=== PATIENT | male | born 1965 | race Caucasian/White ===

== ENCOUNTER 2016-07-16 19:11 | Inpatient (IN) | payer MEDICAID ==
[~2016-07-16] VITALS: Ht 157.5 cm; Wt 63.5 kg
[2016-07-16 20:05] VITALS: BP 141/80
[2016-07-16] MEDS ORDERED: PIPERACILLIN/TAZOBACTAM 3.375 GM in DEXTROSE 5% 50 ML IV ONE (20:20)
[2016-07-16] MEDS ORDERED: VANCOMYCIN 1,000 MG in DEXTROSE 5% 250 ML IV ONE (20:20)
[2016-07-16] MEDS ORDERED: NACL 0.9% 1,000 ML IV ONE ×3 (20:20→23:25)
--- NOTE | 2016-07-16 20:22 | NUR ---
TO ER OF1
--- NOTE | 2016-07-16 20:23 | NUR ---
Patient being evaluated by physician.
--- NOTE | 2016-07-16 20:51 | NUR ---
MOVED TO ER BED 4 VIA WHEELCHAIR
--- NOTE | 2016-07-16 21:06 | NUR ---
PATIENT PRESENTS TO ED WITH RT. FOOT PAIN . 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 FOOT HAS SINCE BECOME SWOLLEN WITH ABCESS AND PAIN. PT REPORTS LAST TDAP WAS 10 YEARS AGO . DENIES N/V/D; SKIN IS PINK/WARM/DRY; AAOX4 WITH EVEN AND STEADY GAIT; LUNGS CLEAR BL; HR EVEN AND REGULAR; PT DENIES ANY FEVER, CP, SOB, OR COUGH AT THIS TIME; PATIENT STATES PAIN OF 10/10 AT THIS TIME; VSS; PATIENT POSITIONED FOR COMFORT; HOB ELEVATED; BEDRAILS UP X2; BED DOWN. ER MD MADE AWARE OF PT STATUS.
[2016-07-16] MEDS ORDERED: VANCOMYCIN 1,000 MG VIAL ONE (21:17)
[2016-07-16] MEDS ORDERED: PIPERACILLIN/TAZOBACTAM 3.375 GM VIAL IV ONE (21:17)
[2016-07-16] MEDS ORDERED: INSULIN HUMAN REGULAR 100 UNITS/ML 10 ML VIAL IVP ONE ×2 (21:35→23:25)
--- NOTE | 2016-07-16 22:55 | NUR ---
Patient appears to be resting comfortably in bed. Vital Signs within normal limits. Respirations even and unlabored. DAUGHTER AT BEDSIDE
--- NOTE | 2016-07-17 00:10 | NUR ---
Patient will be admitted to care of DR. PINK. Admited to Med/Surg. Will go to room 112B. Belongings list completed. Report to SAMREEN WALL.
[2016-07-17 00:40] VITALS: BP 133/69
[2016-07-17] MEDS ORDERED: ACETAMINOPHEN 325 MG TAB PO PRN (00:40)
[2016-07-17] MEDS ORDERED: DEXTROSE 50% 50 ML SYR IVP PRN (00:40)
[2016-07-17] MEDS ORDERED: HYDROcodone/APAP 5/325 MG 1 TAB TAB PO PRN (00:40)
--- NOTE | 2016-07-17 00:40 | NUR ---
[facility] of RIGHT FOOT PAIN & SWELLING. A 50 y/o. Male, Appropriate. ALERT AWAKE ORIENTED X4. INITIAL ASSESSMENT DONE. NO S/S OF RESPIRATORY DISTRESS OR SOB NOTED. PT HAS A CELLULITIS ON THE RIGHT FOOT. NO C/O PAIN ASSOCIATED WITH THE CELLULITIS AT THIS TIME. PLAN OF CARE REVIEWED TO PT AND FAMILY AT BEDSIDE AND VERBALIZED UNDERSTANDING. oriented to call light, bed, phone,television, bathroom, smoking policy, visiting hours, procedures, ID bracelet on. Belongings list checked. CALL LIGHT WITHIN REACH. WILL CONTINUE TO MONITOR.
[2016-07-17] MEDS: NACL 0.9% 1,000 ML IV SCH ×2 (01:18→10:40)
[2016-07-17] MEDS ORDERED: MILD SOAP AND WATER TP PRN (02:10)
--- NOTE | 2016-07-17 03:35 | NUR ---
VENOUS ULTRASOUND ON BILATERAL LOWER EXTREMITIES DONE AT BEDSIDE AND PT TOLERATED WELL. WILL CONTINUE TO MONITOR.
[2016-07-17] MEDS ORDERED: PIPERACILLIN/TAZOBACTAM 3.375 GM VIAL IV ONE (05:01)
[2016-07-17] MEDS: PIPER/TAZO 3.375GM/D5W PREMIX 50 ML IV SCH ×3 (05:12→18:03)
--- NOTE | 2016-07-17 05:30 | NUR ---
AM CARE RENDERED. BED LINEN CHANGED. INSTRUCTED PATIENT TO REPOSITION. KEPT CLEAN AND DRY. CALL LIGHT WITHIN REACH. WILL CONTINUE TO MONITOR.
[2016-07-17] MEDS: BLOOD GLUCOSE MONITORING 1 DEV DEV FS SCH ×4 (06:39→21:19)
[2016-07-17] MEDS: INSULIN ASPART SLIDING SCALE 100 UNITS/ML VIAL SUBQ PRN ×3 (06:39→21:24)
--- NOTE | 2016-07-17 07:21 | NUR ---
PT HAS NO S/S OF ANY DISCOMFORT. GIVE REPORT TO SHIRLEY JOLLEY RN AT BEDSIDE FOR CONTINUITY OF CARE.
[2016-07-17 08:00] VITALS: BP 138/77
[2016-07-17] MEDS: MORPHINE SULFATE 2 MG/ML SYR IVP PRN ×2 (08:15→21:12)
--- NOTE | 2016-07-17 09:15 | NUR ---
RECEIVED REPORT FROM IN CLASS SPECIAL EDUCATION TEACHER RN. PT IS A/O X 4, AMBULATORY WITH ASSIST X 1. RAC 20G IV INTACT AND PATENT. NO S/S OF ACUTE CARDIAC/RESPIRATORY DISTRESS/DISCOMFORT. SAFETY MEASURES IN PLACE, CALL LIGHT WITHIN REACH. WILL CONTINUE PLAN OF CARE, WILL CONTINUE TO MONITOR.
--- NOTE | 2016-07-17 09:19 | NUR ---
PATIENT HAS BEEN SCREENED AND CATEGORIZED HIGH NUTRITION RISK. PATIENT WILL BE SEEN WITHIN 1-2 DAYS OF ADMISSION. 07/17/16-07/18/[address]
--- NOTE | 2016-07-17 10:30 | NUR ---
MD SPOKE WITH PT AND DAUGHTER ABOUT SURGICAL PROCEDURE. PT AND DAUGHTER UNDERSTANDS, PT SIGNED CONSENT.
[2016-07-17] MEDS ORDERED: fentaNYL 0.05 MG/ML VIAL ONE (10:50)
--- NOTE | 2016-07-17 11:00 | NUR ---
PT LEFT THE UNIT WITH PREOP RN FOR SURGICAL PROCEDURE IN STABLE CONDITION.
[2016-07-17] MEDS: HYDROcodone/APAP 10/325 MG 1 TAB TAB PO SCH ×2 (11:20→18:02)
[2016-07-17] MEDS ORDERED: HYDROmorphone PFS 2 MG/ML SYR ONE (11:49)
[2016-07-17] MEDS ORDERED: HYDROmorphone 1 MG/ML AMP IVP PRN (11:50)
[2016-07-17] MEDS ORDERED: BLOOD GLUCOSE MONITORING 1 DEV DEV FS SCH (11:50)
--- NOTE | 2016-07-17 12:29 | NUR ---
07/17/16 RD INITIAL ASSESSMENT COMPLETED PLEASE REFER TO NUTRITION ASSESSMENT UNDER CARE ACTIVITY FOR ESTIMATED NUTRITIONAL NEEDS. RD RECOMMENDATIONS: 1. CONTINUE NPO DIET MEDICALLY APPROPRIATE 2. WHEN APPROPRIATE CONSIDER ADVANCING DIET TOLERATED TO [address] WILL FOLLOW UP WITH DIET EDUCATION NEXT VISIT 4. RD WILL F/U 2-3 DAYS; HIGH RISK. MARY BOSS RD
[2016-07-17] MEDS: DRY DRESSING TP SCH (12:36)
[2016-07-17 13:40] VITALS: BP 133/74
--- NOTE | 2016-07-17 13:40 | NUR ---
PT RETURNED TO UNIT FROM PACU. VS STABLE. NO S/S OF ACUTE DISTRESS/DISCOMFORT. R FOOT DEBRIDEMENT, R GREAT TOE REMOVED. CALL LIGHT WITHIN REACH. FAMILY AT BEDSIDE. WILL CONTINUE TO MONITOR.
--- NOTE | 2016-07-17 17:31 | NUR ---
PT AWAKE, DAUGHTER AT BEDSIDE. NO S/S OF ACUTE DISTRESS/DISCOMFORT. CALL LIGHT WITHIN REACH. WILL CONTINUE TO MONITOR.
--- NOTE | 2016-07-17 19:27 | NUR ---
ENDORSED REPORT TO CO FOUNDER AND CEO SAMREEN DELEON. NO S/S OF ACUTE DISTRESS OR DISCOMFORT. PT IN STABLE CONDITION.
[2016-07-17 20:00] VITALS: BP 128/71
--- NOTE | 2016-07-17 20:00 | NUR ---
RECEIVED ALERT,ORIENTED. AFEBRILE, NOT IN ACUTE DISTRESS. DENIES ANY PAIN OR DISCOMFORT AT THIS TIME. WITH IV FLUID NS INFUSING AT 40 ML/HR VIA RIGHT AC # 20 IV LINE. RIGHT FOOT ELEVATED ON A PILLOW, DRESSING CLEAN,DRY AND INTACT. SAO2=97% ON ROOM AIR. FAMILY MEMBERS AT BEDSIDE. VS STABLE, WILL CONTINUE TO MONITOR. NEEDS ATTENDED.
--- NOTE | 2016-07-17 21:12 | NUR ---
COMPLAINED OF RIGHT FOOT PAIN (12/28). MORPHINE 2 MG IVP AND DUE MEDICATION GIVEN SCHEDULED.
--- NOTE | 2016-07-17 21:24 | NUR ---
DNWONBISV=527. 6 UNITS OF NOVOLG SQ GIVEN PER SLIDING SCALE. HS SNACK GIVEN AFTER.
--- NOTE | 2016-07-18 | NUR ---
ASLEEP IN BED, NOT IN ANY KIND OF DISTRESS. NO PAIN OR DISCOMFORT NOTED AT THIS TIME. DUE IV ANTIBIOTIC GIVEN. WILL HOLD NORCO DUE TO PT.SLEEPING. SIDE RAILS UP, CALL LIGHT WITHIN REACH. KEPT WARM AND COMFORTABLE.
[2016-07-18] MEDS: PIPER/TAZO 3.375GM/D5W PREMIX 50 ML IV SCH ×5 (00:11→23:55)
[2016-07-18] MEDS: HYDROcodone/APAP 10/325 MG 1 TAB TAB PO SCH ×6 (00:31→23:55)
--- NOTE | 2016-07-18 00:31 | NUR ---
COMPLAINED OF PAIN. NORCO 10/325 MG PO GIVEN.
[2016-07-18] MEDS: MORPHINE SULFATE 2 MG/ML SYR IVP PRN ×3 (01:46→14:31)
--- NOTE | 2016-07-18 01:46 | NUR ---
COMPLAINED OF NON-RELIEF POF PAIN. MORPHINE 2 MG IVP GIVEN ORDERED.
[2016-07-18 04:00] VITALS: BP 119/70
--- NOTE | 2016-07-18 04:00 | NUR ---
ASLEEP, NO PAIN OR DISCOMFORT NOTED AT THIS TIME. NO SIGNIFICANT CHANGE IN CONDITION. VS REMAIN STABLE. WILL CONTINUE TO MONITOR.
[2016-07-18] MEDS: NACL 0.9% 1,000 ML IV SCH (05:23)
[2016-07-18] MEDS: BLOOD GLUCOSE MONITORING 1 DEV DEV FS SCH ×4 (05:51→20:51)
[2016-07-18] MEDS: INSULIN ASPART SLIDING SCALE 100 UNITS/ML VIAL SUBQ PRN ×4 (06:15→20:47)
--- NOTE | 2016-07-18 06:15 | NUR ---
ACCUCHECK =285. 6 UNITS OF NOVOLOG GIVEN SQ PER SLIDING SCALE.
--- NOTE | 2016-07-18 07:15 | NUR ---
ENDORSED CARE TO WANDA JOLLEY.
--- NOTE | 2016-07-18 07:30 | NUR ---
RECEIVED ON BED AAOX4. NO SOB NOTED. NO C/O PAIN AT THIS TIME. IV TO RT AC PATENT AND INTACT. CHEST, DIMINISHED AIR ENTRY TO THE BASES. ABDOMEN SOFT, BOWEL SOUNDS PRESENT. RT FOOT DRESSING DRY AND INTACT, AFFECTED EXTREMITY ELEVATED WITH PILLOW. INSTRUCTED PT TO CALL FOR ASSISTANCE, CALL LIGHT WITHIN REACH, PT VERBALIZED UNDERSTANDING.
[2016-07-18 08:00] VITALS: BP 145/83
--- NOTE | 2016-07-18 10:26 | NUR ---
WOUND CARE NOTES: UNABLE TO ASSESS AT THIS TIME, PODIATRY WITH ORDER FOR THEM TO DO FIRST DRESSING CHANGE. WITH DRESSING AND VIOLETA BANDAGE WRAP TO RIGHT FOOT, DRY AND INTACT. PATIENT COMPLAINED OF 6/10 PAIN AT THIS TIME, PRIMARY RN MADE AWARE.
[2016-07-18] MEDS: DRY DRESSING TP SCH (13:00)
--- NOTE | 2016-07-18 13:00 | NUR ---
FIRST DRESSING NOT DONE UNTIL SEEN BY DR. LUDWIG. RT FOOT DRESSING DRY AND INTACT, RT FOOT ELEVATED WITH PILLOWS.
[2016-07-18] MEDS ORDERED: HYDROCOLLOID DRESSING TP SCH (14:20)
--- NOTE | 2016-07-18 14:20 | NUR ---
FIRST POST OP DAY DRESSING CHANGED BY DR. MYERS. WOUND PHOTOS TAKEN AND DOCUMENTED.
[2016-07-18] MEDS: SKINTEGRITY HYDROGEL TP SCH (14:39)
--- NOTE | 2016-07-18 15:30 | NUR ---
PHYSICAL THERAPY ON GOING AT THE BEDSIDE.
[2016-07-18 16:00] VITALS: BP 144/73
[2016-07-18] MEDS ORDERED: metFORMIN 500 MG TAB PO SCH (17:00)
--- NOTE | 2016-07-18 17:55 | NUR ---
PT WAKE, TALKING TO DAUGHTER AT THE BEDSIDE. NO COMPLAINTS MADE. Addendum: 07/18/16 at 1937 by Casandra Calles RN *AWAKE*
--- NOTE | 2016-07-18 19:30 | NUR ---
PT AWAKE. NO SOB NOTED. NO COMPLAINTS MADE. ENDORSED TO NEXT SHIFT NURSE FOR CONTINUITY OF CARE.
--- NOTE | 2016-07-18 19:30 | NUR ---
RECEIVED FROM AM RN IN BED AWAKE AND ALERT. VERBALIZING WELL. DRESSING TO RIGHT FOOT INTACT AND NO BLEEDING. CALL LIGHT WITH IN REACH. AFEBRILE. CARE PLANS FOR THE NIGHT DISCUSSED WITH PT. ORIENTED X 4.
--- NOTE | 2016-07-18 22:30 | NUR ---
PT. STILL AWAKE AT THIS TIME WATCHING TV WITH SON AT BEDSIDE. NO COMPLAINTS DONE. ABLE TO USE CALL LIGHT FOR HELP. ALERT AND ORIENTED X 4. DRESSING TO RIGHT FOOT IN PLACE AND NO BLEEDING. ENCOURAGED TO CALL FOR ANY HELP HE MAY NEED. IVF SITE INTACT AND NO INFILTRATION.
[2016-07-18 23:45] VITALS: BP 133/72
--- NOTE | 2016-07-18 23:56 | NUR ---
SLEEPING WITH SON AT BEDSIDE. NO COMPLAINTS DONE. USES CALL LIGHT FOR HELP. DRESSING TO RIGHT FOOT NO BLEEDING.
--- NOTE | 2016-07-19 02:30 | NUR ---
SLEEPING. NO RESTLESSNESS. CALL LIGHT WITH IN REACH. SON AT BEDSIDE.
[2016-07-19] MEDS: NACL 0.9% 1,000 ML IV SCH (04:34)
--- NOTE | 2016-07-19 05:00 | NUR ---
AWAKE AT THIS TIME . SWINGING CUT OFF SAW OPERATOR IN FOR BLOOD WORKS. NO COMPLAINTS DONE AT THIS TIME. SLEPT WELL THIS SHIFT. SON AT BEDSIDE. NO BLEEDING TO DRESSING ON RIGHT FOOT.
[2016-07-19] MEDS: BLOOD GLUCOSE MONITORING 1 DEV DEV FS SCH ×4 (05:55→21:12)
[2016-07-19] MEDS: PIPER/TAZO 3.375GM/D5W PREMIX 50 ML IV SCH ×3 (05:56→17:25)
[2016-07-19] MEDS: HYDROcodone/APAP 10/325 MG 1 TAB TAB PO SCH ×3 (05:57→17:25)
--- NOTE | 2016-07-19 07:32 | NUR ---
ENDORSED TO THE NEXT RN FOR CONTINUITY OF CARE AWAKE AND ALERT. NO COMPLAINTS DONE.
--- NOTE | 2016-07-19 07:33 | NUR ---
RECEIVED REPORT FROM SAMREEN CHAMBERLAIN. PT IS AAOX4. PT ON ROOM AIR WITH NO S/S OF DISTRESS NOTED. IV TO RIGHT AC #20, PATENT AND INTACT. NO N/V OR PAIN INDICATED. WOUND TO RIGHT FOOT NOTED. ALL SAFETY PRECAUTIONS IN PLACE, SIDE RAILSX2, BED IN LOW POSITION, AND CALL LIGHT WITHIN REACH. WILL CONTINUE TO MONITOR.
[2016-07-19 08:00] VITALS: BP 158/94
[2016-07-19] MEDS: ONDANSETRON 4 MG/2 ML VIAL IVP PRN (08:47)
[2016-07-19] MEDS: ATORVASTATIN 20 MG TAB PO SCH (08:51)
[2016-07-19] MEDS: metFORMIN 850 MG TAB PO SCH ×2 (08:51→17:25)
--- NOTE | 2016-07-19 08:58 | NUR ---
PT C/O NAUSEA AND VOMITING. ADMINISTERED ZOFRAN ORDERED. PT TOLERATED MEDS WELL. WILL CONTINUE TO MONITOR.
[2016-07-19] MEDS ORDERED: SKINTEGRITY HYDROGEL TP SCH (09:00)
[2016-07-19] MEDS ORDERED: METOCLOPRAMIDE 10 MG/2 ML INJ VIAL IVP PRN (09:25)
--- NOTE | 2016-07-19 11:36 | NUR ---
TALKED TO DR DONAHUE, DRESSING CHANGE TO BE PERFORMED BY ACADEMIC REGISTRAR OR RESIDENTS. RESIDENTS TO FOLLOW UP.
[2016-07-19] MEDS: SKINTEGRITY HYDROGEL TP SCH (11:37)
[2016-07-19] MEDS: DRY DRESSING TP SCH (11:37)
[2016-07-19] MEDS: INSULIN ASPART SLIDING SCALE 100 UNITS/ML VIAL SUBQ PRN ×3 (12:07→21:17)
--- NOTE | 2016-07-19 12:08 | NUR ---
PT TOLERATED MEDS WELL. BLOOD GLUCOSE 190, ADMINISTERED 2 UNITS OF INSULIN ORDERED.
--- NOTE | 2016-07-19 12:14 | NUR ---
PT TOLERATED MEDS WELL. WILL CONTINUE TO MONITOR.
--- NOTE | 2016-07-19 14:00 | NUR ---
PT RESTING WITH NO DISTRESS NOTED.
[2016-07-19 16:00] VITALS: BP 145/73
--- NOTE | 2016-07-19 17:27 | NUR ---
PT TOLERATED MEDS WELL. VSS. BLOOD GLUCOSE 214, WILL ADMINISTER INSULIN ORDERED.
--- NOTE | 2016-07-19 17:34 | NUR ---
BLOOD GLUCOSE 214, ADMINISTERED 4 UNITS OF INSULIN ORDERED. PROVIDED PT WITH SNACK.
--- NOTE | 2016-07-19 19:22 | NUR ---
ENDORSED CARE TO SAMREEN CHAMBERLAIN. PT IN STABLE CONDITION.
--- NOTE | 2016-07-19 19:25 | NUR ---
RECEIVED FROM AM RN IN BED AWAKE AND ALERT. DRESSING TO RIGHT FOOT INTACT AND NO BLEEDING NOTED. PT. IS ABLE TO VERBALIZE NEEDS WELL. ABLE TO USE CALL LIGHT FOR HELP. CARE PLANS FOR THE NIGHT DISCUSSED WITH HIM. PT. WITH VISITORS AT THIS TIME. NO COMPLAINTS DONE.
--- NOTE | 2016-07-19 21:00 | NUR ---
NEW IVF LINE INSERTED TO LEFT FOREARM#22 RT OLD IVF SITE TO LEFT AC INFILTRATED. TOLERATED WELL. DISCONTINUED IVF LINE WITH TIP INTACT. COVERED WITH BAND AID.
--- NOTE | 2016-07-19 23:40 | NUR ---
SLEEPING AT THIS TIME.
[2016-07-20] VITALS: BP 132/80
[2016-07-20] MEDS: ONDANSETRON 4 MG/2 ML VIAL IVP PRN ×3 (00:06→12:31)
[2016-07-20] MEDS: HYDROcodone/APAP 10/325 MG 1 TAB TAB PO SCH ×2 (00:07→05:41)
[2016-07-20] MEDS: PIPER/TAZO 3.375GM/D5W PREMIX 50 ML IV SCH ×4 (00:07→17:07)
--- NOTE | 2016-07-20 02:41 | NUR ---
SLEEPING. NO RESTLESSNESS. DAUGHTER AT BEDSIDE WATCHING OVER PT. CALL LIGHT WITH IN REACH.
[2016-07-20] MEDS: NACL 0.9% 1,000 ML IV SCH ×2 (04:34→17:07)
[2016-07-20] MEDS: BLOOD GLUCOSE MONITORING 1 DEV DEV FS SCH ×4 (05:41→20:54)
[2016-07-20] MEDS: INSULIN ASPART SLIDING SCALE 100 UNITS/ML VIAL SUBQ PRN ×3 (05:45→20:58)
[2016-07-20] MEDS: MORPHINE SULFATE 2 MG/ML SYR IVP PRN (05:49)
--- NOTE | 2016-07-20 05:49 | NUR ---
PT. VOMITED AT THIS TIME. REFUSED NORCO TABLET. REQUESTED FOR A DIFFERENT PAIN RELIEVER IVP. WILL MEDICATE WITH MORPHINE INSTEAD REQUESTED. DAUGHTER AT BEDSIDE.
--- NOTE | 2016-07-20 07:39 | NUR ---
ENDORSED TO THE NEXT RN FOR CONTINUITY OF CARE. DAUGHTER AT BEDSIDE. NO COMPLAINTS DONE.
--- NOTE | 2016-07-20 07:40 | NUR ---
RECEIVED REPORT FROM SAMREEN CHAMBERLAIN. PT IS AAOX4. PT ON ROOM AIR WITH NO S/S OF DISTRESS NOTED. IV TO LEFT WRIST #22, PATENT AND INTACT. DRESSING NOTED TO RIGHT FOOT. NO N/V NOTED AT THIS TIME, NO PAIN INDICATED. ALL SAFETY PRECAUTIONS IN PLACE, SIDE RAILSX2, AND BED IN LOW POSITION. WILL CONTINUE TO MONITOR.
[2016-07-20 08:00] VITALS: BP 144/74
[2016-07-20] MEDS: ATORVASTATIN 20 MG TAB PO SCH (09:39)
--- NOTE | 2016-07-20 09:51 | NUR ---
PT TOLERATED MEDS WELL. WILL CONTINUE TO MONITOR.
--- NOTE | 2016-07-20 10:00 | NUR ---
PHYSICAL THERAPY IN TO SEE PT. PT TOLERATED GOING TO THE STAIRS. PHYSICAL THERAPY SUGGESTED CRUTCHES FOR PT.
--- NOTE | 2016-07-20 11:32 | NUR ---
BLOOD GLUCOSE 135, NO COVERAGE INDICATED. PT TOLERATED MEDS WELL. WILL CONTINUE TO MONITOR.
[2016-07-20] MEDS: DRY DRESSING TP SCH (12:09)
[2016-07-20] MEDS: SKINTEGRITY HYDROGEL TP SCH (12:09)
--- NOTE | 2016-07-20 12:09 | NUR ---
DR MYERS IN TO SEE PT. DRESSING BEING CHANGED, AND WOUND CLEANED BY DR MYERS. WILL FOLLOW UP.
--- NOTE | 2016-07-20 12:34 | NUR ---
PT C/O NAUSEA, ADMINISTERED ZOFRAN ORDERED. FAMILY PRESENT AT BEDSIDE.
--- NOTE | 2016-07-20 14:00 | NUR ---
PT RESTING NO DISTRESS NOTED AT THIS TIME.
--- NOTE | 2016-07-20 15:52 | NUR ---
07/20/16 RD PROGRESS NOTE COMPLETED PLEASE REFER TO NUTRITION PROGRESS NOTE UNDER CARE ACTIVITY FOR ESTIMATED NUTRITIONAL NEEDS. RD RECOMMENDATIONS: 1. CONTINUE CCHO [address] PROVIDED DM DIET EDUCATION 3. RD WILL F/U 3-5 DAYS; MODERATE RISK.MARY BOSS RD
[2016-07-20 16:00] VITALS: BP 146/85
--- NOTE | 2016-07-20 17:20 | NUR ---
BLOOD GLUCOSE 229, ADMINISTERED 4 UNITS OF INSULIN ORDERED. PT TOLERATED MEDS WELL. WILL CONTINUE TO MONITOR.
--- NOTE | 2016-07-20 19:03 | NUR ---
DR LUDWIG PERFORMING WOUND CARE AND EDUCATING THE FAMILY. HYDROGEL PROVIDED. WILL FOLLOW UP ON ORDERS.
--- NOTE | 2016-07-20 19:34 | NUR ---
ENDORSED CARE TO SAMREEN SKELTON. PT IN STABLE CONDITION.
--- NOTE | 2016-07-20 19:37 | NUR ---
REPORT RECEIVED FROM DAY NURSEWANDA. PATIENT RESTING IN BED, WATCHING TELEVISION. FAMILY AT BEDSIDE. NO RESPIRATORY DISTRESS, SOB, OR DISCOMFORT. INITIAL ASSESSMENT AND BODY CHECK DONE. PATIENT IS AOX4, IV ACCESS TO LEFT WRIST 22G, PATENT. RIGHT GREATER TOE AMPUTATION NOTED, RIGHT FOOT COVERED WITH DRESSING, S/P DEBRIDEMENT. PATIENT DENIES ANY PAIN AT THIS TIME. DISCUSSED PLAN OF CARE, MEDICATION REGIMENT, AND PAIN MANAGEMENT WITH PATIENT. PATIENT VERBALIZED UNDERSTANDING. PLACED PATIENT ON SAFETY/FALL PRECAUTIONS. CALL LIGHT LEFT WITHIN REACH, WILL CONTINUE TO MONITOR.
[2016-07-20] MEDS: SACCHAROMYCES 250 MG CAP PO SCH (20:54)
--- NOTE | 2016-07-20 22:15 | NUR ---
PATIENT IN BED, SLEEPING. NO RESPIRATORY DISTRESS, SOB, OR DISCOMFORT. CALL LIGHT LEFT WITHIN REACH, WILL CONTINUE TO MONITOR.
[2016-07-21] VITALS: BP 144/74
[2016-07-21] MEDS: PIPER/TAZO 3.375GM/D5W PREMIX 50 ML IV SCH ×3 (00:29→11:42)
--- NOTE | 2016-07-21 00:48 | NUR ---
PATIENT ASLEEP. NO RESPIRATORY DISTRESS, SOB, OR DISCOMFORT. CALL LIGHT LEFT WITHIN REACH, WILL CONTINUE TO MONITOR.
--- NOTE | 2016-07-21 03:01 | NUR ---
PATIENT SLEEPING. NO RESPIRATORY DISTRESS, SOB, OR DISCOMFORT. CALL LIGHT LEFT WITHIN REACH, WILL CONTINUE TO MONITOR.
[2016-07-21] MEDS ORDERED: HYDROcodone/APAP 10/325 MG 1 TAB TAB PO PRN (06:00)
--- NOTE | 2016-07-21 06:10 | NUR ---
PATIENT IN BED, ASLEEP. NO RESPIRATORY DISTRESS, SOB, OR DISCOMFORT. CALL LIGHT LEFT WITHIN REACH, WILL CONTINUE TO MONITOR.
[2016-07-21] MEDS: BLOOD GLUCOSE MONITORING 1 DEV DEV FS SCH ×2 (06:32→11:41)
--- NOTE | 2016-07-21 07:20 | NUR ---
REPORT GIVEN TO DAY NURSENUBIA. PATIENT RESTING IN BED, STABLE. NO RESPIRATORY DISTRESS, SOB, OR DISCOMFORT. ALL NEEDS ATTENDED TO DURING SHIFT, CALL LIGHT LEFT WITHIN REACH.
--- NOTE | 2016-07-21 07:21 | NUR ---
REPORT RECEIVED FROM NIGHT NURSE CARMINA JOLLEY. PATIENT APPEARED TO BE CALM AWAKE AND RESTING WELL IN BED. AAOX4 NO SIGN OF SOB OR RESPIRATORY DISTRESS NOTED. INITIAL ASSESSMENT DONE. PATIENT HAS DRESSING TO RIGHT FOOT DRY AND INTACT WITH R BIG TOE AMPUTATED NOTED S/P DEBRIDEMENT. FAMILY AT BEDSIDE. PATIENT HAS IV ACCESS TO LEFT WRIST 22G, PATENT DENIES ANY PAIN AT THIS TIME. DISCUSSED PLAN OF CARE, MEDICATION REGIMENT, AND PAIN MANAGEMENT WITH PATIENT. PATIENT VERBALIZED UNDERSTANDING. PLACED PATIENT ON SAFETY/FALL PRECAUTIONS. CALL LIGHT LEFT WITHIN REACH, WILL CONTINUE TO MONITOR.
[2016-07-21] MEDS ORDERED: ACETAMINOPHEN &1 TA1 PO (07:55)
[2016-07-21] MEDS ORDERED: LEVAQUIN750 MG PO (07:55)
[2016-07-21] MEDS ORDERED: GLUCOTROL5 MG PO (07:56)
[2016-07-21 08:00] VITALS: BP 166/84
[2016-07-21] MEDS: ATORVASTATIN 20 MG TAB PO SCH (09:03)
[2016-07-21] MEDS: SACCHAROMYCES 250 MG CAP PO SCH (09:03)
--- NOTE | 2016-07-21 09:08 | NUR ---
MORNING DUE MEDICATIONS GIVEN WITH TEACHING. PATIENT TOLERATED WELL AND VERBALIZED UNDERSTANDING. ALL SIGN OF DISTRESS NOTED. NO C/O PAIN OR DISCOMFORT. FAMILY MEMBER AT BEDSIDE. CALL LIGHT WITHIN REACH. WILL CONTINUE TO MONITOR.
--- NOTE | 2016-07-21 10:30 | NUR ---
DR MYERS IS HERE TO SEE PATIENT. DRESSING CHANGED BY MD. NO SIGN OF DISTRESS NOTED. WOUND PHOTO TAKEN AND PUT IN CHART.
[2016-07-21] MEDS: INSULIN ASPART SLIDING SCALE 100 UNITS/ML VIAL SUBQ PRN (11:55)
[2016-07-21] MEDS: SKINTEGRITY HYDROGEL TP SCH (12:14)
[2016-07-21] MEDS: DRY DRESSING TP SCH (12:14)
--- NOTE | 2016-07-21 14:05 | NUR ---
PATIENT REFUSED TO HAVE BOTH FLU AND PNA VACCINES HERE.
--- NOTE | 2016-07-21 15:30 | NUR ---
ALL DISCHARGE PAPERS SIGNED BY PATIENT. ALL DISCHARGE MEDICATIONS PRESCRIPTIONS AND FOLLOW UP WITH PCP ON 07/23/[address] LUDWIG 07/22/16 1430 FOR WOUND CARE TO RIGHT FOOT INSTRUCTIONS GIVEN, ALSO WOUND CARE TEACHING FOR DIABETES, PATIENT AND DAUGHTER VERBALIZED UNDERSTANDING. ALL IV'S AND ID BAND REMOVED. PATIENT WILL BE DISCHARGED HOME SELF CARE VIA PRIVATE VEHICLE WITH DAUGHTER. PATIENT LEFT THE HOSPITAL IN STABLE CONDITION. DENIED ANY PAIN OR DISCOMFORT. DRESSING DRY AND INTACT TO RIGHT FOOT. ALL BELONGINGS WITH PATIENT.
--- NOTE | 2016-07-21 15:31 | NUR ---
CRUTCHES GAVE TO PATIENT WITH TEACHING. PATIENT VERBALIZED UNDERSTANDING.
[2016-07-21] MEDS ORDERED: glipiZIDE 5 MG TAB PO SCH (16:30)
== END 2016-07-21 15:32 | disposition home or self-care (01) | DRG 314 ==
LOC: MED 19:11 → MTU 07-17 00:02
PROVIDERS: ADMIT Family Medicine; ATTEND Family Medicine
PROC: 0KBV0ZZ Excision of Right Foot Muscle, Open Approach (ICD-10-PCS; 2016-07-17)
PROC: 0Y9M0ZZ Drainage of Right Foot, Open Approach (ICD-10-PCS; 2016-07-17)
PROC: 0Y6P0Z0 Detachment at Right 1st Toe, Complete, Open Approach (ICD-10-PCS; principal; 2016-07-17 11:00)
DX: L02.611 Cutaneous abscess of right foot (principal); E11.51 Type 2 diabetes mellitus with diabetic peripheral angiopathy without gangrene; N17.0 Acute kidney failure with tubular necrosis; M72.6 Necrotizing fasciitis; E43 Unspecified severe protein-calorie malnutrition; L03.115 Cellulitis of right lower limb; E11.65 Type 2 diabetes mellitus with hyperglycemia; L97.519 Non-pressure chronic ulcer of other part of right foot with unspecified severity; R31.9 Hematuria, unspecified; D64.9 Anemia, unspecified; Z72.89 Other problems related to lifestyle; Z68.25 Body mass index [BMI] 25.0-25.9, adult